=== PATIENT | female | born 1965 | race Caucasian/White ===

== ENCOUNTER 2023-02-17 07:27 | Outpatient (OUT) | payer BC, SELFPAY ==
--- NOTE | 2023-02-17 07:30 | MM_ITS ---
Patient: LATHA DUMONT Exam Date: 02/17/2023 : 1965 Gender:F Ordering : DR Rodriguez Plata . Admission #: [id number] Family : Order #: [id number] CLICK HERE TO VIEW EXAM RADIOLOGY REPORT PROCEDURE: MM TOMOSYNTHESIS SCREENING BI COMPARISON: MG MAMM SCREEN JODIE W CAD, 09/25/2016. INDICATIONS: Screening Calculator Name NCI Breast Cancer Risk Assessment Tool 5 Year Breast Cancer Risk 1.70% Lifetime Breast Cancer Risk 10.20% Personal Breast Cancer No Personal Ovarian Cancer No Treatments None Family Cancers Brother with kidney cancer at age 49. LOCATION: [facility] BREAST COMPOSITION: Heterogeneously dense,which may obscure small masses. FINDINGS: DIAGNOSTIC CATEGORY 1--NEGATIVE. NO CHANGE FROM COMPARISON ASSESSMENT. Scattered benign-appearing calcifications are present. Scattered benign-appearing lymph nodes are present. RIGHT BREAST: No significant suspicious finding. LEFT BREAST: No significant suspicious finding. RECOMMENDATIONS: ROUTINE MAMMOGRAM AND CLINICAL EVALUATION IN 12 MONTHS. PLEASE NOTE: A NORMAL MAMMOGRAM DOES NOT EXCLUDE THE POSSIBILITY OF BREAST CANCER. A CLINICALLY SUSPICIOUS PALPABLE LUMP SHOULD BE BIOPSIED. Dictated by: Yoseph Warren MD on 02/17/2023 at 13:14 Approved by: Yoseph Warren MD on 02/17/2023 at 13:46
== END 2023-02-17 07:28 | disposition home or self-care (01) ==
LOC: MAMMO 07:27
PROVIDERS: PCP Family Medicine; Visit Provider Family Medicine
DX: Z12.31 Encounter for screening mammogram for malignant neoplasm of breast (principal); Z80.51 Family history of malignant neoplasm of kidney
CPT/HCPCS: 77063; 77067

== ENCOUNTER 2024-01-17 11:32 | Outpatient (OUT) | payer BC, SELFPAY ==
--- NOTE | 2024-01-17 11:40 | XR_ITS ---
The [address] [address] Patient Name: LATHA DUMONT MRN: [id number] date: 1965 Sex: F Assigned Patient Location: [facility] Current Patient Location: RAD Accession/Order Number: [id number] Exam Date: 01/17/2024 12:00 Report Date: 01/18/2024 08:49 At the request of: KAVITA JAMES Procedure: XR ribs RT 2V PROCEDURE: XR ribs RT 2V DATE: 01/17/2024 11:00 AM CDT COMPARISONS: Chest x-ray done the same day. CLINICAL INDICATION: 58 years Female Shoulder Impingement FINDINGS: The cardiomediastinal silhouette and pulmonary vasculature are within normal limits. There are some circumscribed nodular densities of the right lung. There is an 11 mm nodule of the right upper lung. It's quite dense for size. It may represent a granuloma.. There is a 7 mm nodular density of the right lower lung field which may be a sclerotic focus of the anterior right fifth rib. Alternatively, it could represent a granuloma. There is no evidence of pleural effusion or pneumothorax. No evidence of rib fractures or other acute rib abnormalities. XR/XR ribs RT 2V IMPRESSION: 1. 11 mm nodule of the right upper lung field is not seen on the CT of the chest from 07/01/2019. It may represent a granuloma. Because it is a new finding since 2019 and raises some suspicion. Follow-up CT of the chest recommended. This CT can be done without contrast enhancement. 2. There appears to be a sclerotic focus of the anterior right fifth rib likely of no clinical significance Electronically authenticated by: JEFF MUNROE Date: 01/18/2024 08:49
--- NOTE | 2024-01-17 11:40 | XR_ITS ---
The [address] [address] Patient Name: LATHA DUMONT MRN: [id number] date: 1965 Sex: F Assigned Patient Location: [facility] Current Patient Location: [facility] Accession/Order Number: [id number] Exam Date: 01/17/2024 12:00 Report Date: 01/18/2024 08:49 At the request of: KAVITA JAMES Procedure: XR shoulder RT min 2V PROCEDURE: XR shoulder RT min 2V DATE: 01/17/2024 11:00 AM CDT COMPARISONS: None CLINICAL INDICATION: Shoulder Impingement FINDINGS: There is no evidence of fractures or other osseous abnormalities. XR/XR shoulder RT min 2V IMPRESSION: Right shoulder radiographs show no evidence of abnormalities. Electronically authenticated by: JEFF MUNROE Date: 01/18/2024 08:49
--- NOTE | 2024-01-17 12:14 | XR_ITS ---
The [address] [address] Patient Name: LATHA DUMONT MRN: [id number] date: 1965 Sex: F Assigned Patient Location: [facility] Current Patient Location: Accession/Order Number: [id number] Exam Date: 01/17/2024 12:00 Report Date: 01/18/2024 08:39 At the request of: KAVITA JAMES Procedure: XR chest 2V PROCEDURE: XR chest 2V DATE: 01/17/2024 11:00 AM CDT COMPARISONS: CT chest 07/01/2019 CLINICAL INDICATION: 58 years Female Shoulder Impingement FINDINGS: The cardiomediastinal silhouette and pulmonary vasculature are within normal limits. The lungs are clear. There is no evidence of pleural effusion or pneumothorax. XR/XR chest 2V IMPRESSION: Chest radiograph is within normal limits. Electronically authenticated by: JEFF MUNROE Date: 01/18/2024 08:39
== END 2024-01-17 11:33 | disposition home or self-care (01) ==
LOC: RAD 11:33
PROVIDERS: PCP Family Medicine; Visit Provider Family Medicine
DX: R07.9 Chest pain, unspecified (principal); M25.511 Pain in right shoulder; R07.81 Pleurodynia; M75.41 Impingement syndrome of right shoulder
CPT/HCPCS: 71046; 71100; 73030

== ENCOUNTER 2024-01-25 07:44 | Outpatient (OUT) | payer BC, SELFPAY ==
--- OUTSIDE RECORDS SUMMARY | 2024-01-25 07:47 | XMS_ITS | CCD ---
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 Name Role Phone Nill, Josh R Unavailable Unavailable Nill, Josh R Unavailable Unavailable Nill, Josh R Unavailable Unavailable MORLEYSTACIE~[phone] UNKNOWN Unavailable Unavailable Nill, Josh R Unavailable Unavailable Nill, Josh R Unavailable Unavailable Nill, Josh R Unavailable Unavailable MORLEYSTACIE~[phone] UNKNOWN Unavailable Unavailable Nill, Josh R Unavailable Unavailable Nill, Josh R Unavailable Unavailable Nill, Josh R Unavailable Unavailable MORLEY, STACIE~[phone] UNKNOWN Unavailable Unavailable APARNA MALDONADO Admitting Unavailable APARNA MALDONADO Attending Unavailable JACOB, DR WALLS Primary Care Unavailable DIGNA, DR ASTRID Quesada Consulting Unavailable APARNA MALDONADO Consulting Unavailable JACOB, DR WALLS Primary Care Unavailable ABRAHAN LLAMAS Admitting Unavailable ABRAHAN LLAMAS Attending Unavailable CASSANDRA SINGH Consulting Unavailable DEVIN BOWMAN Consulting Unavailable APARNA MALDONADO Admitting Unavailable APARNA MALDONADO Attending Unavailable JACOB, DR WALLS Primary Care Unavailable DANICA, DR BRAEDEN Canela Consulting Unavailable APARNA MALDONADO Consulting Unavailable APARNA MALDONADO Admitting Unavailable APARNA MALDONADO Attending Unavailable JACOB, DR WALLS Primary Care Unavailable DANICA, DR BRAEDEN Canela Consulting Unavailable APARNA MALDONADO Consulting Unavailable APARNA MALDONADO Admitting Unavailable APARNA MALDONADO Attending Unavailable DR KAVITA JAMES Primary Care Unavailable DANICA, DR BRAEDEN Canela Consulting Unavailable APARNA MALDONADO Consulting Unavailable Allergies Allergy Classification Reported Allergen(s) Allergy Type Date of Onset Reaction(s) Facility (1 source) Hmg-Coa Reductase Inhibitors (Statins); Translations: [statins] Propensity to adverse reactions (disorder) [facility] Repository (1 source) rosuvastatin; Translations: [Crestor] Drug Allergy [facility] Repository Problems Problem Classification Problem Date Documented Da te Episodic/Chronic E Codes: Overexertion (1 source) Slipping, tripping and stumbling without falling due to stepping into hole or opening, initial encounter; Translations: [SLIP STUMBL NO FALL STEP HOLE INIT] Onset: 01-12-2022 Episodic Fracture of lower limb (11 sources) Displaced fracture of fifth metatarsal bone, left foot, subsequent encounter for fracture with routine healing; Translations: [Displaced fracture of fifth metatarsal bone, left foot, initial encounter for closed fracture] Onset: 01-12-2022 Episodic Other connective tissue disease (5 sources) Pain in left foot; Translations: [PAIN IN LEFT FOOT] Onset: 01-15-2022 Episodic Other injuries and conditions due to external causes (3 sources) Unspecified injury of left ankle, initial encounter; Translations: [UNSPECIFIED INJURY LT ANKLE INITIAL] Onset: 01-09-2022 Episodic Other non-traumatic joint disorders (4 sources) Pain in left ankle and joints of left foot; Translations: [PAIN IN LEFT ANKLE] Onset: 01-13-2022 Episodic Other nutritional; endocrine; and metabolic disorders (1 source) Morbid (severe) obesity due to excess calories; Translations: [MORBID SEVERE OBES D/T EXCESS HILLARY] Onset: 01-12-2022 Chronic Other nutritional; endocrine; and metabolic disorders (1 source) Body mass index (BMI) 40.0-44.9, adult; Translations: [BODY MASS INDEX BMI 40.0-44.9 ADULT] Onset: 01-12-2022 Chronic Sprains and strains (1 source) Sprain of unspecified ligament of left ankle, initial encounter; Translations: [SPRAIN UNS LIGAMENT LT ANKLE INIT] Onset: 01-12-2022 Episodic Results Test Name Value Interpretation Reference Range Facility XR ANKLE LT MIN 3 Von 2021 XR ANKLE LT MIN 3 V EXAM: XR ANKLE LT MIN 3 V HISTORY: Trauma, status post fall COMPARISON: None. TECHNIQUE: 3 views of the left ankle are performed. FINDINGS: There are tiny amorphous densities adjacent to the distal fibula, suggesting tiny avulsion fragments. There is adjacent soft tissue swelling. The ankle mortise is preserved. On the lateral view, there appears to be a transverse fracture of the proximal fifth metatarsal. There is a plantar calcaneal spur, and an enthesophyte at the insertion of the Achilles tendon. IMPRESSION: Partial visualization of a fracture at the base of the fifth metatarsal. Suspected tiny avulsion fractures from the distal fibula. Lateral soft tissue swelling. Electronically authenticated by: DEVINShawn BOWMAN Date: 2022-01-09 19:36 [facility] Main OR Intraoperative Recor don 2018 Main OR Intraoperative Record IntraOp Document Type FT Summary Primary Physician: Josh LOWRY MD Finalized Date/Time: 05/27/18 14:25:01 Pt. Name: LATHA DUMONT Shawn Pro/Sex: 1965 Female Med Rec #: [id number] Physician: Josh LOWRY MD Financial #: [id number] Pt. Type: A Room/Bed: [facility] Admit/Disch: 05/23/18 05:59:00 - 05/23/18 13:00:00 Institution: Case Times FT Entry 1 Patient Times In Room 05/23/18 07:42:00 Out Room 05/23/18 09:04:00 Procedure Times Start 05/23/18 08:01:00 Stop 05/23/18 09:00:00 Anesthesia Times Start 05/23/18 07:42:00 Stop 05/23/18 09:04:00 Last Modified By: Ciara Vernon CST 05/23/18 09:04:52 General Comments: 05/25/18 Chart opened to review and send charges Roxana Vernon CST Case Attendance FT Entry 1 Entry 2 Entry 3 Case Attendee Harlan COLEMAN, Milly LOWRY MD, Josh Bourne RN, Nikki Patel Role Performed Anesthesiologist Surgeon - Primary Sales Service Coordinator - Primary Wire Coater Time In 05/23/18 07:42:00 05/23/18 07:42:00 05/23/18 07:42:00 Time Out 05/23/18 09:04:00 05/23/18 09:04:00 05/23/18 09:04:00 Procedure CHOLECYSTECTOMY CHOLECYSTECTOMY CHOLECYSTECTOMY LAPAROSCOPIC W/ LAPAROSCOPIC W/ LAPAROSCOPIC W/ CHOLANGI(.) CHOLANGI(.) CHOLANGI(.) Comments Dr. George Supervising Paulette Rutherford- MA3 Last Modified By: Tayla CORRALES, Nikki Bourne RN, Nikki Bourne RN, Nikki Patel 05/23/18 09:04:54 05/23/18 09:04:54 05/23/18 09:04:54 Entry 4 Entry 5 Entry 6 Case Attendee Chase CORRALES, Neelam Mcbride RN, CNOR, VERNON CARRIZALES, Saulo Castillo Role Performed Sales Service Coordinator - Primary Scrub - Other Surgeon - Assist 1 Time In 05/23/18 07:42:00 05/23/18 07:42:00 05/23/18 07:42:00 Time Out 05/23/18 09:04:00 05/23/18 09:04:00 05/23/18 09:04:00 Procedure CHOLECYSTECTOMY CHOLECYSTECTOMY CHOLECYSTECTOMY LAPAROSCOPIC W/ LAPAROSCOPIC W/ LAPAROSCOPIC W/ CHOLANGI(.) CHOLANGI(.) CHOLANGI(.) Comments Last Modified By: Nikki Bourne RN RN, CNOR, Nikki Johnson RN 05/23/18 09:04:54 05/25/18 08:24:44 05/23/18 09:04:54 Entry 7 Case Attendee Megha RADIAL SAW OPERATOR/SA, Sherice Role Performed Scrub - Primary Time In 05/23/18 07:42:00 Time Out 05/23/18 09:04:00 Procedure CHOLECYSTECTOMY LAPAROSCOPIC W/ CHOLANGI(.) Comments Last Modified By: Nikki Bourne RN 05/23/18 09:04:54 Perioperative Protocols FT Pre-Care Text: Implements protective measures prior to operative or invasive procedure, confirms identity before the operative or invasive procedure, verifies operative procedure, surgical site, and laterality Entry 1 Procedure(s) CHOLECYSTECTOMY Patient Identity Birthday, ID Band LAPAROSCOPIC W/ Verified (select at Check, Patient CHOLANGI(.) least 2): Participation Consents / H and P Anesthesia Consent, Operative Site N/A Verified HandP, Surgery/Procedure Marking Verified Consent Surgical Site Yes Laterality Verified n/a Verified Procedure Verified Yes Correct Patient Yes Position Verified Availability Equipment, Medication, Prep Dry Yes Verified (If X-ray Applicable) PreOp Antibiotic Yes Time Out Milly Villaseñor, Given Participants STARLA CARRIZALES, Chase Valdes RN, Tayla Hogan RN, VERNON Cannon MD, Saulo Howell, Megha RADIAL SAW OPERATOR/SA, Sherice Time Out Complete 05/23/18 08:00:00 Outcomes Met? Yes Last Modified By: Nikki Bourne RN 05/23/18 08:00:57 Post-Care Text: The patient is free from signs and symptoms of injury caused by extraneous objects Allergy Information FT Pre-Care Text: Verifies allergies Entry 1 Allergies Reviewed? Yes Allergies Reviewed Self/Patient With Outcomes Met? Yes Last Modified By: Nikki Bourne RN 05/23/18 07:20:27 Post-Care Text: The patient received appropriate medication(s) safely administered during the perioperative period Surgical Procedures FT Entry 1 Procedure Description Procedure CHOLECYSTECTOMY Modifiers . LAPAROSCOPIC W/ CHOLANGIOGRAM Surgeon Description CHOLECYSTECTOMY LAPAROSCOPIC Primary Procedure Yes Primary Surgeon Josh LOWRY MD Start 05/23/18 08:01:00 Stop 05/23/18 09:00:00 Anesthesia Type General Surgical Service General Wound Class 2 - Clean-Contaminated Last Modified By: Nikki Bourne RN 05/23/18 09:05:03 General Case Data FT Pre-Care Text: Classifies surgical wound, implements aseptic technique, initiates traffic control Entry 1 Case Information OR OR 6 FT Case Level Level 3 Wound Class 2 - Clean-Contaminated Specialty General ASA Class 2 Preop Diagnosis CHOLELITHISASIS Postop Same As Preop Yes Postop Diagnosis CHOLELITHISASIS Outcomes Met? Yes Last Modified By: Nikki Bourne RN 05/23/18 07:22:27 Post-Care Text: The patient is free from signs and symptoms of infection Skin Assessment (Pre Procedure) FT Pre-Care Text: Implements protective measures to prevent skin/ tissue injury due to thermal or mechanical sources Evaluates for signs and symptoms of physical injury to skin and tissue Entry 1 Skin Integrity Intact, [place], Warm, and Skin Abnormality No Dry Outcomes Met? Yes Last Modified By: Nikki Bourne RN 05/23/18 07:22:37 Post-Care Text: The patient is free from signs and symptoms of injury caused by extraneous objects Patient Positioning FT Pre-Care Text: Identifies physical alterations that require additional precautions for procedure-specific positioning, verifies presence of prosthetics or corrective devices, positions the patient, evaluates the patient for signs and symptoms of injury as a result of positioning Entry 1 Procedure CHOLECYSTECTOMY Body Position Supine LAPAROSCOPIC W/ CHOLANGI(.) Feet Uncrossed? Yes Left Arm Position Extended on Padded Arm Board Right Arm Position Extended on Padded Arm Left Leg Position Extended Board Right Leg Position Extended Positioning Device Safety Strap, Pillow Large Under Knees, Foot board Press Points Checked Yes By Milly Villaseñor Ginty RN, Chase Cannon RN, Reed Hogan RN, Anna SPARKS Outcomes Met? Yes Last Modified By: Tayla CORRALES, Nikki Patel 05/23/18 07:24:14 Post-Care Text: The patient is free from signs and symptoms of injury related to positioning Patient Care Devices FT Pre-Care Text: Implements protective measures to prevent skin/ tissue injury due to thermal or mechanical sources Entry 1 Entry 2 Entry 3 Equipment Type CAUTERY UNIT[F] ENDOFLOW IRRIGATION INSUFLATORS[F] SYSTEM[F] Equipment Number boom Equipment Setting Outcomes Met? Yes Yes Yes Last Modified By: Tayla RN, Nikki Bourne RN, Nikki Bourne RN, Nikki Patel 05/27/18 14:24:40 05/23/18 07:25:30 05/27/18 14:24:40 Entry 4 Entry 5 Entry 6 Equipment Type INSUFLOW HEATER UNIT[F] MISTRAL FORCED AIR MONITOR CHARGE SURGERY WARMING SYSTEM UNIT[F] [F] Equipment Number M4 Equipment Setting Outcomes Met? Yes Yes Yes Last Modified By: Tayla RN, Nikki Bourne RN, Nikki Bourne RN, Nikki Patel 05/27/18 14:24:40 05/27/18 14:24:40 05/27/18 14:24:40 Entry 7 Entry 8 Entry 9 Equipment Type OLYMPUS SMOKE VENA FLOW UNIT[F] VIDEO SYSTEM[F] EVACUATOR[F] Equipment Number Equipment Setting Outcomes Met? Yes Yes Yes Last Modified By: Tayla RN, Nikki Bourne RN, Nikki Bourne RN, Nikki Patel 05/27/18 14:24:40 05/27/18 14:24:40 05/27/18 14:24:40 Post-Care Text: The patient is free from signs and symptoms of injury caused by extraneous objects Transport To OR FT Pre-Care Text: Transports according to individual needs. Evaluates for signs and symptoms of skin and tissue injury as a result of transfer or transport Entry 1 Via Cart By Chase CORRALES, Neelam Coleman Safety Precautions Side Rails Up Outcomes Met? Yes Last Modified By: Nikki Bourne RN 05/23/18 07:25:38 Post-Care Text: The patient is free from signs and symptoms of injury related to transfer/transport Cautery FT Pre-Care Text: Implements protective measures to prevent injury due to electrical sources, and evaluates for signs and symptoms of electrical injury Entry 1 ESU Identification ESU Type CAUTERY UNIT[F] Equipment Number boom ESU Settings Cut 0 Coag 20 ESU Grounding Pad Site Right Thigh Hair Removal Pad No Site Pre Pad Site Clear and Intact Post Pad Site Clear and Intact Condition Condition Outcomes Met? Yes Last Modified By: Nikki Bourne RN 05/23/18 07:27:19 Post-Care Text: The patient if free from signs and symptoms of electrical injury Counts Verification FT Pre-Care Text: Performs required counts Entry 1 Entry 2 Procedure(s) CHOLECYSTECTOMY CHOLECYSTECTOMY LAPAROSCOPIC W/ LAPAROSCOPIC W/ CHOLANGI(.) CHOLANGI(.) Type Initial Final Items Sponges, Sharps Sponges, Sharps Status Correct Correct Time By Nikki Bourne RN, Farris RN, Karen M, Sharp RADIAL SAW OPERATOR/SA, Sherice Sharp RADIAL SAW OPERATOR/SA, Sherice Outcomes Met? Yes Yes Last Modified By: Nikki Bourne RN, RN, Amber L 05/23/18 07:53:13 05/23/18 08:52:17 Post-Care Text: The patient is free from signs and symptoms of injury caused by extraneous objects Skin Prep FT Pre-Care Text: Performs skin preparations Entry 1 Procedure CHOLECYSTECTOMY Prep Area abdomen LAPAROSCOPIC W/ CHOLANGI(.) Prep Agents Betadine Scrub and Solution Hair Removal Methods Not Indicated By Neelam Stone RN Outcomes Met? Yes Last Modified By: Nikki Bourne RN 05/23/18 07:27:35 Post-Care Text: The patient is free from signs and symptoms of infection Departure From OR FT Pre-Care Text: Transports according to individual needs. Evaluates for signs and symptoms of skin and tissue injury as a result of transfer or transport. Entry 1 Via Cart Safety Precautions Side Rails Up PostOp Destination PACU Transported By Neelam Stone RN Patient Status Stable Skin. Condition Warm, Dry Airway Maintenance Oxygen in Use? Yes Airway Device Simple Mask Flow Rate 8 L Outcomes Met? Yes Last Modified By: Nikki Bourne RN 05/23/18 07:29:05 Post-Care Text: The patient is free from signs and symptoms of injury related to transfer/transport General Comments: HANDOFF COMMUNICATION GIVEN TO WINDOW CLEANERRN. 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 Yes Last Modified By: Nikki Bourne RN 05/23/18 07:29:57 Post-Care Text: The patient is free from signs and symptoms of infection Medication Administration FT Pre-Care Text: Verifies allergies, administers prescribed medications and solutions, administers prescribed antibiotic therapy and immunizing agents as ordered, evaluates response to medications Administers prescribed medications and solutions Entry 1 Expiration Date Yes Outcomes Met? Yes Verified Last Modified By: Nikki Bourne RN 05/23/18 07:30:04 Post-Care Text: The patient received appropriate medication(s) safely administered during the perioperative period For [place] please see scanned medication reconcilliation form for medications used at the field during the procedure. Drains/Tubes FT Pre-Care Text: Administers care to invasive device sites Entry 1 Device Type TUBE NASOGASTIC SUMP Quantity 1 18FR [[id number]][F] Inserted By Milly Villaseñor at End of Case? Yes Outcomes Met? Yes Last Modified By: Nikki Bourne RN 05/23/18 07:56:15 Post-Care Text: The patient is free from signs and symptoms of infection Cultures and Specimens FT Pre-Care Text: Manages specimen handling and disposition Manages culture specimen collection Entry 1 Cultures Ordered No Specimens Ordered Yes Specimen Disposition Designated OR Area Frozen Section Times Outcomes Met? Yes Last Modified By: Nikki Bourne RN 05/23/18 07:30:21 Post-Care Text: The patient is free from signs and symptoms of injury caused by extraneous objects The patient is free from signs and symptoms of infection General Comments: Specimen- Gallbladder Temperature Control Entry 1 Temperature Control BLANKET MISTRAL AIR Quantity 1 Aid TORSO [[id number]][F] Fluid/[place] Unit Mistral warming system Setting 43C/High Body Site Upper anterior torso Last Modified By: Nikki Bourne RN 05/23/18 07:30:53 Case Comments Finalized By: Nikki Bourne RN Document Signatures Signed By: Nikki Bourne RN 05/23/18 09:05 [place] CORRALES, GLENROYORDevin 05/25/18 08:24 Saulo GALANCiara 05/25/18 13:09 Tayla CORRALES, Nikki Patel 05/27/18 14:25 [facility] Coding Summary.on 05-26-2018 Coding Summary. CODING DATE: 019 FINAL [facility] STATUS: Home (Routine DC) PAYOR: Jaquan APC DESCRIPTION 5361 Level 1 Laparoscopy and Related Services ADMIT DX: REASON FOR VISIT DX: K80.10 Calculus of gallbladder with chronic cholecystitis without obstruction FINAL DX: PRINCIPAL: K80.10 Calculus of gallbladder with chronic cholecystitis without obstruction SECONDARY: Z87.891 Personal history of nicotine dependence PYMT PROC APC STAT DESCRIPTION DOCTOR NAME DATE 53750 5361 J1 Laparoscopy, surgical; Josh LOWRY MD 05/23/2018 cholecystectomy 68625 Anesthesia for Ariel Panda DO, 05/23/2018 intraperitoneal procedures in upper abdomen including laparoscopy; not otherwise specified NOTE: The code number assigned matches the documented diagnosis and / or procedure in the patient's chart. However, the narrative phrase printed from the coding software may appear abbreviated, or result in slightly different terminology. Revised Coded By: Lydia Jaime Revised Date Saved: 05/26/2018 02:49 pm [facility] Inpatient Patient Summaryon 05-23-2018 [facility] Name: LATHA DUMONT PHYSICIANS Admitting Physician: Josh LOWRY MD Physician: Josh LOWRY MD PCP: Discharge Diagnosis: Cholelithiasis with chronic cholecystitis Comment: PATIENT EDUCATION INFORMATIONInstructions:Medica tion Leaflets:Follow up:With: Address: When: Josh LOWRY [address] [place] [address] Business (1) Within 7 to 10 days MEDICATION LISTComment: [facility] Main OR PACU I Recordon 04-25 Main OR PACU I Record PACU Phase I Document Type FT Summary Primary Physician: Josh LOWRY MD Finalized Date/Time: 05/23/18 10:23:41 Pt. Name: LATHA DUMONT Shawn Pro/Sex: 1965 Female Med Rec #: [id number] Physician: Josh LOWRY MD Financial #: [id number] Pt. Type: A Room/Bed: Admit/Disch: 05/23/18 05:59:02 - Institution: Case Times PACU I FT Pre-Care Text: Identifies barriers to communication and implements measures to provide psychological support Develops individualized plan of care, and ensures continuity of care Maintains patient's dignity and privacy, and maintains patient confidentiality Identifies and reports philosophical, cultural, and spiritual beliefs and values Identifies individual values and wishes concerning care Implements aseptic technique, and administers prescribed antibiotic therapy and immunizing agents as ordered Evaluates postoperative tissue perfusion Implements thermoregulation measures, and monitors body temperature Evaluates postoperative respiratory status Evaluates postoperative cardiac status Evaluates postoperative neurological status Assesses pain control, collaborated in initiating patient-controlled analgesia and implements alternative methods of pain control Verifies allergies, administers prescribed medications and solutions, evaluates response to medications Entry 1 In PACU I 05/23/18 09:06:00 Discharge from PACU 05/23/18 09:59:00 I Outcomes Met? Yes Last Modified By: Dimple Durbin RN 05/23/18 10:23:29 Post-Care Text: The patient demonstrates knowledge of the expected response to the operative or invasive procedure The patient's care is consistent with the individualized perioperative plan of care The patient's right to privacy is maintained The patient's value system, lifestyle, ethnicity, and culture are considered, respected, and incorporated into the perioperative plan of care The patient participates in decisions affecting his or her perioperative plan of care The patient is free from signs and symptoms of infection The patient has wound/tissue perfusion consistent with or improved from baseline levels established preoperatively The patient is at or returning to normothermia at the conclusion of the immediate postoperative period The patient's respiratory function is consistent with or improved from baseline levels established preoperatively The patient's cardiovascular status is consistent with or improved from baseline levels established preoperatively The patient's cardiovascular status is consistent with or improved from baseline levels established preoperatively The patient demonstrates and/or reports adequate pain control throughout the perioperative period The patient received appropriate medication(s), safely administered during the perioperative period Acuity Level PACU I FT Entry 1 Start Time 05/23/18 09:06:00 Stop Time 05/23/18 09:59:00 Acuity Level Acuity Level I Last Modified By: Dimple Durbin RN 05/23/18 10:23:40 Finalized By: Dimple Durbin RN Document Signatures Signed By: Dimple Durbin RN 05/23/18 10:23 Normal [facility] Main OR PACU II Recordon Main OR PACU II Record PACU Phase II Document Type FT Summary Primary Physician: Josh LOWRY MD Finalized Date/Time: 05/23/18 13:08:23 Pt. Name: LATHA DUMONT Shawn Roberts/Sex: 1965 Female Med Rec #: [id number] Physician: Josh LOWRY MD Financial #: [id number] Pt. Type: A Room/Bed: [facility] Admit/Disch: 05/23/18 05:59:02 - Institution: Case Times PACU II FT Pre-Care Text: Identifies barriers to communication and implements measures to provide psychological support and determines knowledge level Develops individualized plan of care, and ensures continuity of care Maintains patient's dignity and privacy, and maintains patient confidentiality Identifies and reports philosophical, cultural, and spiritual beliefs and values Identifies individual values and wishes concerning care administers prescribed antibiotic therapy and immunizing agents as ordered, Evaluates postoperative tissue perfusion Implements thermoregulation measures, and monitors body temperature Evaluates postoperative respiratory status Evaluates postoperative cardiac status Evaluates postoperative neurological status Assesses pain control, collaborated in initiating patient-controlled analgesia and implements alternative methods of pain control Verifies allergies, administers prescribed medications and solutions, evaluates response to medications Entry 1 In PACU II 05/23/18 10:00:00 Discharge from PACU 05/23/18 13:00:00 II Outcomes Met? Yes Last Modified By: Claritza Patricia RN 05/23/18 13:08:20 Post-Care Text: The patient demonstrates knowledge of the expected response to the operative or invasive procedure The patient's care is consistent with the individualized perioperative plan of care The patient's right to privacy is maintained The patient's value system, lifestyle, ethnicity, and culture are considered, respected, and incorporated into the perioperative plan of care The patient participates in decisions affecting his or her perioperative plan of care. The patient is free from signs and symptoms of infection The patient has wound/tissue perfusion consistent with or improved from baseline levels established preoperatively The patient is at or returning to normothermia at the conclusion of the immediate postoperative period The patient's respiratory function is consistent with or improved from baseline levels established preoperatively The patient's cardiovascular status is consistent with or improved from baseline levels established preoperatively The patient's neurological status is consistent with or improved from baseline levels established preoperatively The patient demonstrates and/or reports adequate pain control throughout the perioperative period The patient received appropriate medication(s), safely administered during the perioperative period Finalized By: Claritza Patricia RN Document Signatures Signed By: Claritza Patricia RN 05/23/18 13:08 Normal [facility] Main OR Preoperative Recordo n 05-23-2018 Main OR Preoperative Record PreOp Document Type FT Summary Primary Physician: Josh LOWRY MD Finalized Date/Time: 05/23/18 07:59:12 Pt. Name: LATHA DUMONT/Sex: 1965 Female Med Rec #: [id number] Physician: Josh LOWRY MD Financial #: [id number] Pt. Type: A Room/Bed: [place] [address] Admit/Disch: 05/23/18 05:59:02 - Institution: Case Times PreOp FT Pre-Care Text: Verifies consent for planned procedure, identifies individual values and wishes concerning care, includes family members in perioperative teaching Entry 1 Patient Times. In Pre Surgery 05/23/18 06:05:00 Out Pre Surgery 05/23/18 07:40:00 Outcomes Met? Yes Last Modified By: Nikki Bourne RN 05/23/18 07:59:09 Post-Care Text: The patient participates in decisions affecting his or her perioperative plan of care Finalized By: Nikki Bourne RN Document Signatures Signed By: Nikki Bourne RN 05/23/18 07:59 Normal [facility] Operative Reporton 8 Operative Report Date of Surgery: 05/23/2018SURGEON: Josh Lowry M.D.SENIOR OPERATOR: Saulo Cottrell M.D., FACSPREOPERATIVE DIAGNOSIS: Symptomatic cholelithiasisPOSTOPERATIVE DIAGNOSIS: Symptomatic cholelithiasis with chroniccholecystitisOPERATION: Laparoscopic cholecystectomyANESTHESIA: General endotrachealESTIMATED BLOOD LOSS: Less than 15 mLINDICATIONS AND CONSENT: The patient is a 52 year old female with a longhistory of intermittent biliary colic which has worsened over the lastmonth. Workup revealed numerous gallstones both on computerized tomographyand ultrasound with a normal size common duct. She had essentially normalliver function tests. Indications, risks, benefits, alternatives ofproceeding with laparoscopic cholecystectomy were explained extensively tothe patient including risk of bleeding, infection, scarring, pain, bileduct injury, need for intraoperative cholangiogram, postoperativeendoscopic retrograde cholangiopancreatography, open procedure, blood clot,pulmonary embolus, heart attack, anesthetic complications or need forfurther surgery. All of her questions were answered. Informed consent wasobtained.PROCEDURE: The patient brought to the Operating Room and placed in thesupine position. General anesthesia was induced. She was prepped and drapedin usual sterile fashion. A supraumbilical incision was made with a scalpelblade and carried down through the subcutaneous tissue using bluntdissection. The fascia was grasped and incised. Two 0 Vicryl stay sutureswere placed in either side of the midline fascia. The Antonia trocar wasthen inserted and secured using the stay sutures. The abdomen was theninsufflated with carbon dioxide to a pressure of 15 mm Hg. The scope wasthen inserted and the abdomen was visualized. Three 5 mm ports were thenplaced, one in the subxiphoid area, two in the right subcostal area allunder direct visualization. The patient was placed in reverse Trendelenburgposition with the right side up. Gallbladder was noted to be markedlydistended but not acutely inflamed but more chronically inflamed filledwith numerous stones. It was grasped at the fundus and retracted cephaladon the patient's right. The infundibulum had several omental adhesionswhich were taken down using sharp and blunt dissection. The infundibulumwas then grasped and retracted laterally and inferiorly. There was a largestone within the infundibulum. The cystic duct was carefully dissectedfree from surrounding structures. The whole infundibulum was mobilized offof the liver. The cystic artery was identified as well. Both the arteryand duct were noted to be of normal caliber. All structures of Calot'striangle were identified. The cystic duct was then clipped with dkoFlk-m-zez clips proximally towards the common duct and one distally towardsthe gallbladder and then divided. The artery was divided in an identicalfashion. There was also noted to be some posterior branches which werecontrolled with regular clips. The gallbladder was then taken down from theliver bed using electrocautery. There was noted to be chronic inflammatorychanges within the liver bed. A small several mm opening was made in thegallbladder and the posterior wall with minimal spillage of bile and nostones. Once the gallbladder was completely removed it was brought out inan EndoCatch bag through the umbilical port site and the upper abdomen wasthen copiously irrigated with Saline until clear. The liver bed wasinspected and noted to be hemostatic with no evidence of bile leak. Jackson sites were examined upon withdrawal of the ports. There was noted joselo good hemostasis. The umbilical port site fascia was closed with 0 Ulysaloxsejj-yf-osxqe suture. All port sites were infiltrated with 0.5% Marcaine.The skin was then closed with interrupted 4-0 subcuticular Monocryl suturesand skin glue. Sterile pressure dressing was applied to the umbilicalincision. The patient tolerated the procedure well, was extubated and sentto Recovery Room in good condition.Josh Lowry M.D.lkrDictated: 05/23/2018 #[id number]: 05/23/2018 #[id number]: Kezia Hurt M.D. [facility] Comment on above: Result Comment: Elec tronically Signed By: Josh LOWRY MD\Date and Time Signed: 05/23/18 13:55 EST Patient Education - Texton 1 Patient Education - Text [facility] Coding Summary.on 05-19-2018 Coding Summary. CODING DATE: 018 FINAL [facility] STATUS: Home (Routine DC) PAYOR: [place] ADMIT DX: REASON FOR VISIT DX: Z01.818 Encounter for other preprocedural examination FINAL DX: PRINCIPAL: Z01.818 Encounter for other preprocedural examination SECONDARY: PROCEDURES DOCTOR NAME DATE NOTE: The code number assigned matches the documented diagnosis and / or procedure in the patient's chart. However, the narrative phrase printed from the coding software may appear abbreviated, or result in slightly different terminology. Coded By: Patti Rebollar CphT Date Saved: 05/19/2018 07:51 am Normal [facility] BUNon 05-18-2018 Urea nitrogen mass conc 12 mg/dL Normal 5-21 [facility] Comment on above: Performed By: #### 2 567841, 8889615, 3342936, 0133743, 7179804, 88500228, 8913827 ####[facility] [address] [place] [address] CBC w/Indiceson 05-18-2018 Erythrocyte distribution width Auto Ratio (RBC) 13.4 % Normal 10.9-14.2 [facility] Comment on above: Performed By: #### 2 674114, 3389022, 8048880, 0875458, 8753053, 46447710, 9507896 ####[facility] [address] [place] [address] Hematocrit Auto Volume Fraction (Bld) 41.7 % Normal 34.0-46.0 [facility] Comment on above: Performed By: #### 2 127069, 6963803, 6265089, 5846706, 6440878, 62888508, 6374354 ####[facility] [address] [place] [address] Hemoglobin mass conc (Bld) 13.7 g/dL Normal 12.0-16.0 [facility] Comment on above: Performed By: #### 2 925374, 9163454, 8709403, 0940054, 9995900, 35840060, 4823504 ####[facility] [address] [place] [address] MCH Auto Entitic mass (RBC) 28.3 pg Normal 27.0-34.0 [facility] Comment on above: Performed By: #### 2 135032, 7471866, 3632865, 8600018, 1803129, 20305596, 1301967 ####[facility] [address] [place] [id number] MCHC Auto mass conc (RBC) 32.9 g/dL Normal 31.4-39.3 [facility] Comment on above: Performed By: #### 2 217191, 3025879, 3519695, 8904764, 6164417, 76180007, 6573363 ####[place] [address] [place] [id number] MCV Auto Entitic volume (RBC) 86.0 fL Normal 80.0-100.0 [facility] Comment on above: Performed By: #### 2 912064, 8627936, 0159389, 7644766, 5814591, 20488858, 0579140 ####[place] [address] Platelet mean volume Auto Entitic volume (Bld) 8.2 fL Normal 6.4-10.8 [facility] Comment on above: Performed By: #### 2 355227, 5819667, 9263961, 4998834, 9656535, 19657208, 4258735 ####[place] [address] Platelets Auto #/vol (Bld) 304.0 E9/L Normal 150.0-500.0 [facility] Comment on above: Performed By: #### 2 773895, 6431924, 2775861, 3343166, 9882798, 45311660, 8182366 ####[place] 68[address] RBC Auto #/vol (Bld) 4.8 E12/L Normal 4.3-5.9 [facility] Comment on above: Performed By: #### 2 094625, 8261093, 6608428, 8467981, 1033671, 40349557, 1296324 ####[address] [address] WBC corrected for nucl RBC Auto #/vol (Bld) 5.4 E9/L Normal 4.0-11.0 [facility] Comment on above: Performed By: #### 2 095966, 7215023, 9644686, 7205923, 7469121, 02270905, 4536610 ####[facility] [address] [place] [address] Creatinineon 05-18-2018 Creatinine mass conc 0.6 mg/dL Normal 0.5-1.3 [facility] Comment on above: Performed By: #### 2 824346, 9660587, 5948316, 6937479, 7075140, 53309246, 9081758 ####[facility] [address] [place] [address] Glucoseon 05-18-2018 Glucose mass conc 91 mg/dL Normal 55-199 [facility] Comment on above: Performed By: #### 2 499751, 0936404, 8638976, 9038492, 1851491, 32062532, 2823262 ####[facility] [address] [place] [address] Hep Func Panelon 05-18-2018 Bilirubin.indirec t [Mass or Moles/volume] in Serum or Plasma UTC Abnormal 0.1-0.9 [facility] Comment on above: Order Comment: if no t already done. Result Comment: Resu lt verified by Discern Rule. Performed result UTC (Unable to Calculate) was sent as an Alpha code due the inability to calculate a valid numeric value. Performed By: #### 2 459022, 4096760, 3219539, 5483613, 1612251, 92765220, 3476247 ####[facility] [address] [place] [address] Albumin mass conc 1.3 g/dL Normal 1.1-2.2 [facility] Comment on above: Order Comment: if no t already done. Performed By: #### 2 677306, 2160458, 1788352, 0895925, 5657746, 97898675, 5680951 ####[facility] [address] [place] [address] Albumin mass conc 3.9 g/dL Normal 3.3-5.0 [facility] Comment on above: Order Comment: if no t already done. Performed By: #### 2 990636, 1765374, 9442236, 9054228, 1500444, 36797443, 5200662 ####[facility] [address] [place] [address] ALP enzyme act/vol 81 Int._Unit/L Normal 21-98 [facility] Comment on above: Order Comment: if no t already done. Performed By: #### 2 026908, 3967436, 4237628, 3373748, 2406990, 20582167, 9665989 ####[facility] [address] [place] [address] ALT No additional P-5'-P enzyme act/vol 47 Int._Unit/L High 6-46 [facility] Comment on above: Order Comment: if no t already done. Performed By: #### 2 891976, 4183964, 6311488, 4409319, 8864626, 15391425, 5169213 ####[facility] [address] [place] [address] AST enzyme act/vol 33 Int._Unit/L Normal 5-43 [facility] Comment on above: Order Comment: if no t already done. Performed By: #### 2 669656, 9260073, 2940898, 1858126, 9374360, 57855557, 5877100 ####[facility] [address] [place] [address] Bilirubin mass conc 0.5 mg/dL Normal 0.0-1.1 [facility] Comment on above: Order Comment: if no t already done. Performed By: #### 2 670939, 6863532, 4051695, 7244810, 0416743, 14539898, 9020323 ####[facility] [address] [place] [address] Bilirubin.direct mass conc mg/dL Normal 0.1-0.4 [facility] Comment on above: Order Comment: if no t already done. Performed By: #### 2 933153, 9827898, 1648891, 7124256, 1698150, 89568875, 4490643 ####[facility] [address] [place] [address] Globulin Calculated mass conc (S) 3.0 g/dL Normal 1.4-4.0 [facility] Comment on above: Order Comment: if no t already done. Performed By: #### 2 762454, 4605037, 9520498, 0273506, 1266210, 28269142, 1477260 ####[facility] [address] [place] [address] Protein mass conc 6.9 g/dL Normal 6.0-7.8 [facility] Comment on above: Order Comment: if no t already done. Performed By: #### 2 121920, 4665302, 8193453, 8386218, 6990273, 34977998, 1534887 ####[facility] [address] [place] [address] Lyteson 05-18-2018 Anion gap 3 molar conc 11 mmol/L Normal 6-16 [facility] Comment on above: Performed By: #### 2 736641, 1226354, 9757377, 8727026, 3545307, 02266106, 9166084 ####[facility] [address] [place] [address] Chloride molar conc 105 mmol/L Normal 101-111 [facility] Comment on above: Performed By: #### 2 927130, 8350127, 4606212, 4496915, 6402772, 78225253, 7448664 ####[facility] [address] [place] [address] CO2 molar conc 23 mmol/L Normal 21-31 [facility] Comment on above: Performed By: #### 2 041147, 1445662, 6274032, 6155309, 3843812, 32015489, 2125005 ####[facility] [address] [place] [address] Potassium molar conc 3.8 mmol/L Normal 3.5-5.3 [facility] Comment on above: Performed By: #### 2 846786, 6633093, 2221689, 7243972, 5043027, 51168076, 5108294 ####[facility] [address] [place] [address] Sodium molar conc 135 mmol/L Normal 135-145 [facility] Comment on above: Performed By: #### 2 874062, 5395306, 1881435, 2764337, 9583726, 80768462, 6339700 ####[facility] [address] [place] [address] eGFRon 05-18-2018 GFR/1.73 sq M predicted among blacks MDRD vol rate/area (S/P/Bld) mL/min/{1.73_m2} Normal >=59 [facility] Comment on above: Order Comment: Order added by Discern Expert. Result Comment: eGFR is race adjusted. AA=. Performed By: #### 2 396669, 5703453, 2239403, 3071159, 9514994, 99111379, 9355063 ####[facility] [address] [place] [address] GFR/1.73 sq M predicted among non-blacks MDRD vol rate/area (S/P/Bld) mL/min/{1.73_m2} Normal >=59 [facility] Comment on above: Order Comment: Order added by Discern Expert. Result Comment: Measurement Analyst jany kidney disease could be indicated at eGFR's of less than 60 mL/min/1.73m2. Kidney failure is indicated at less than 15 mL/min/1.73m2. Performed By: #### 2 318265, 7553762, 1476594, 6818906, 6380802, 14255009, 4748448 ####[facility] [address] [place] [address] Coding Summary.on 05-16-2018 Coding Summary. CODING DATE: 018 FINAL [facility] STATUS: Home (Routine DC) PAYOR: Jaquan APC DESCRIPTION 5522 Level 2 Imaging without Contrast ADMIT DX: REASON FOR VISIT DX: K80.20 Calculus of gallbladder without cholecystitis without obstruction FINAL DX: PRINCIPAL: K80.20 Calculus of gallbladder without cholecystitis without obstruction SECONDARY: R10.11 Right upper quadrant pain PYMT PROC APC STAT DESCRIPTION DOCTOR NAME DATE NOTE: The code number assigned matches the documented diagnosis and / or procedure in the patient's chart. However, the narrative phrase printed from the coding software may appear abbreviated, or result in slightly different terminology. Coded By: Patti Rebollar CphT Date Saved: 05/16/2018 11:29 am [facility] US Abdomen, Limitedon 2017 US Abdomen, Limited Exam Date/Time:05/13/2018 09:49 ESTReason for Exam:Calculus of gallbladder without cholecystitis without obstructionReportIMPRESSION: MULTIPLE GALLSTONES. NO SECONDARY SIGNS OF ACUTE GALLBLADDER DISEASE.EXAM: Limited abdominal ultrasoundINDICATION:Right upper quadrant pain Calculus of gallbladder without cholecystitiswithout obstruction TECHNIQUE: Patricia-scale evaluation of the right upper quadrant was performed.COMPARISON: None available.FINDINGS: Liver: Hepatic echogenicity is within normal limits without intrahepatic biliarydilatation. There are no focal hepatic lesions..Gallbladder: Multiple echogenic foci in the gallbladder that move and shadowconsistent with gallstones. Gallbladder wall not thickened. The common duct measures up to 5 mm. Pancreas: Overlying gas and soft tissue attenuation precludes visualization of thepancreas. FINAL REPORT Dictated: 05/13/2018 11:21 am Bertin Hernandez MD Signed (Electronic Signature): 05/13/2018 5:30 pm Signed by: Bertin Hernandez MD Transcribed by: pacheco Technologist: OUMAR [facility] Encounters Encounter Date Encounter Type Care Provider Facility Start: 04-07-2022 End: 04-08-2022 ambulatory [facility] Facility:[facility] Start: 02-24-2022 End: 02-[facility]20[facility] Start: 02-03-2022 End: 02-04-2022 ambulatory [facility] Facility:[facility] Start: 01-13-2022 End: 01-14-2022 ambulatory [facility] Facility:[facility] Start: 01-09-2022 End: 01-09-[address] KAVITA JAMES Facility:H1 Start: 05-23-2018 End: 05-23-2018 Patient encounter procedure Josh Lowry Facility:[facility] Start: 05-18-2018 End: 05-19-2018 Patient encounter procedure Josh Lowry Facility:[facility] Start: 05-13-2018 End: 05-14-2018 Patient encounter procedure Josh Lowry Facility:[facility] Procedures Date Procedure Procedure Detail Performing Clinician Start: 05-26-2018 Anesthesia consultation Josh Lowry Start: 05-23-2018 Anesthesia consultation Josh Lowry Payers Date Payer Category Payer Unknown [id number] 1965 Unknown [id number] 2.16.84 [id number] 1965 Unknown [id number] 2.16.84 [id number] 1965 Unknown [id number] 2.16.84 [id number] 1965 Unknown [id number] 2.16.84 [id number] 1965 Unknown [id number] 2.16.84 [id number] 1965 Unknown [id number] 2.16.84 [id number] 1965 Unknown [id number] 2.16.84 [id number] 1965 Unknown [id number] 2.16.84 [id number] 1959 Unknown [id number] Clinical Note 04-07-2022 Note Date & Type Note Facility 04-07-2022 Note PROCEDURE: XR FOOT L T MIN 3 VIEWS HISTORY: Pain in left foot ; follow-up left fifth metatarsal fracture COMPARISON: XR foot left 02/24/2022 FINDINGS: BONES:Increasing density of prior fracture line at base of fifth metatarsal compatible with osseous healing. No change in alignment. SOFT TISSUES:No visible soft tissue swelling. EFFUSION:None visible. OTHER: Negative. IMPRESSION: 1. Continuing bone healing of proximal fifth metatarsal fracture. No abnormal alignment. Electronically authenticated by: BRAEDEN MISHRA Date: 2022-04-07 15:12 [facility] Clinical Note 02-24-2022 Note Date & Type Note Facility 02-24-2022 Note PROCEDURE: XR FOOT L T MIN 3 VIEWS HISTORY: Pain ; fifth metatarsal fracture 2 weeks ago COMPARISON: XR foot left 02/03/2022 FINDINGS: BONES:Increasing density of the base of fifth metatarsal fracture line; no displacement or change in alignment. SOFT TISSUES:No visible soft tissue swelling. EFFUSION:None visible. OTHER: Negative. IMPRESSION: 1. Ongoing bone healing of fifth metatarsal fracture. Stable alignment. Electronically authenticated by: BRAEDEN MISHRA Date: 2022-02-24 12:05 [facility] Clinical Note 02-03-2022 Note Date & Type Note Facility 02-03-2022 Note PROCEDURE: XR FOOT L T MIN 3 VIEWS HISTORY: Pain in left foot ; follow-up left fifth metatarsal fracture COMPARISON: None. FINDINGS: BONES:Minimally displaced fracture at base of fifth metatarsal without appreciable callus formation or significant increased density of the fracture line. SOFT TISSUES:No visible soft tissue swelling. EFFUSION:None visible. OTHER: Negative. IMPRESSION: 1. Stable base of fifth metatarsal fracture with slightly widened fracture line; unchanged. No radiographic evidence of significant bone healing. Electronically authenticated by: BRAEDEN MISHRA Date: 2022-02-03 11:29 [facility] Clinical Note 01-13-2022 Note Date & Type Note Facility 01-13-2022 Note PROCEDURE: XR FOOT L T MIN 3 VIEWS, XR ANKLE LT MIN 3 V COMPARISON: 01/09/2022 HISTORY: Pain in left foot FINDINGS: BONES:Stable transverse intra-articular fracture base of the fifth metatarsal with distraction up to 3.6 mm. Irregular appearance of the inferior lateral malleolus suggesting subtle avulsion fracture. No new fracture or dislocation. Moderate enthesopathic spurring of the calcaneus. SOFT TISSUES:Moderate lateral and ankle soft tissue swelling EFFUSION:None visible. OTHER: Negative. IMPRESSION: Stable transverse intra-articular fracture base of the fifth metatarsal Suspected tiny avulsion fracture inferior lateral malleolus Electronically authenticated by: ASTRID SAWYER Date: 2022-01-13 17:15 [facility] Clinical Note 01-13-2022 Note Date & Type Note Facility 01-13-2022 Note PROCEDURE: XR FOOT L T MIN 3 VIEWS, XR ANKLE LT MIN 3 V COMPARISON: 01/09/2022 HISTORY: Pain in left foot FINDINGS: BONES:Stable transverse intra-articular fracture base of the fifth metatarsal with distraction up to 3.6 mm. Irregular appearance of the inferior lateral malleolus suggesting subtle avulsion fracture. No new fracture or dislocation. Moderate enthesopathic spurring of the calcaneus. SOFT TISSUES:Moderate lateral and ankle soft tissue swelling EFFUSION:None visible. OTHER: Negative. IMPRESSION: Stable transverse intra-articular fracture base of the fifth metatarsal Suspected tiny avulsion fracture inferior lateral malleolus Electronically authenticated by: ASTRID SAWYER Date: 2022-01-13 17:15 [facility] Summary Purpose Family History No Family History Records FoundNo Family History Records Found Advance Directives No Advanced Directives Records FoundNo Advanced Directives Records Found Additional Source Comments INFORMATION SOURCE (unrecogn ized section and content) DATE CREATED AUTHOR 05/28/2018 [facility] DATE CREATED AUTHOR AUTHOR'S ORGANIZ ATION 04/11/[address] [facility] FOR RECORDS PERTAINING TO PATIENTS WHO ARE OR HAVE BEEN ENROLLED IN A CHEMICAL DEPENDENCY/SUBSTANCEABUSE PROGRAM, SOME INFORMATION MAY BE OMITTED. This clinical summary was aggregated from multiple sources. Caution should be exercised in using it in the provision of clinical care. This summary normalizes information from multiple sources, and as a consequence, information in this document may materially change the coding, format and clinical context of patient data. In addition, data may be omitted in some cases. CLINICAL DECISIONS SHOULD BE BASED ON THE PRIMARY CLINICAL RECORDS. [facility]. provides no warranty or guarantee of the accuracy or completeness of information in this document.
--- NOTE | 2024-01-25 07:59 | CT_ITS ---
[address] [address] Patient Name: LATHA DUMONT MRN: [id number] date: 1965 Sex: F Assigned Patient Location: CT Current Patient Location: CT Accession/Order Number: [id number] Exam Date: 01/25/2024 07:52 Report Date: 01/25/2024 10:06 At the request of: KAVITA JAMES Procedure: CT chest wo con EXAMINATION: CT chest wo con HISTORY: Scar Tissue L90.5 ; follow-up lung nodules; right rib pain since falling one week ago COMPARISON: XR RIBS 01/17/2024, XR chest 01/17/2024, CT chest 07/01/2019 TECHNIQUE: Axial, Coronal, and Sagittal images were created without the administration of IV contrast material. Dose reduction techniques were achieved by using automated exposure control and/or adjustment of mA and/or kV according to patient size and/or use of iterative reconstruction technique. FINDINGS: LUNGS: 9 mm nodule within posterior segment of right upper lobe with several adjacent 2-3 mm nodules. PLEURA: No mass, effusion, or pneumothorax. VASCULATURE: No abnormality. RAMSES: No mass or pathologic adenopathy. MEDIASTINUM: No mass or pathologic adenopathy. CARDIAC: No enlargement, pericardial thickening, or pericardial effusion. Coronary Artery calcifications: AORTA: No aneurysm or dissection. CHEST WALL: No mass or axillary adenopathy BONES: Small sclerotic focus within anterior right 5th rib. No fractures. LIMITED ABDOMEN: No suspicious findings. Limited images of the upper abdomen. OTHER: Negative. CT/CT chest wo con IMPRESSION: 1. New 9 mm nodule with several tiny satellite lesions within right upper lobe posterior segment; nonspecific. Follow-up CT chest in 1-2 months could be performed to document clearing of potential infiltrate. Otherwise consider PET imaging for additional evaluation. 2. Small sclerotic focus within anterior right 5th rib; nonspecific but favoring a benign bone island. 3. No rib fracture(s). Electronically authenticated by: BRAEDEN MISHRA Date: 01/25/2024 10:06
== END 2024-01-25 07:45 | disposition home or self-care (01) ==
LOC: CT 07:44
PROVIDERS: PCP Family Medicine; Visit Provider Family Medicine
DX: L90.5 Scar conditions and fibrosis of skin (principal); R91.8 Other nonspecific abnormal finding of lung field
CPT/HCPCS: 71250

== ENCOUNTER 2024-02-14 14:49 | Outpatient (OUT) | payer BC, SELFPAY ==
--- NOTE | 2024-02-14 16:43 | PE_ITS ---
The [address] [address] Patient Name: LATHA DUMONT MRN: [id number] date: 1965 Sex: F Assigned Patient Location: PETCT Current Patient Location: PETCT Accession/Order Number: [id number] Exam Date: 02/14/2024 15:42 Report Date: 02/15/2024 22:37 At the request of: KAVITA JAMES Procedure: PET skull to mid thigh PET/CT: HISTORY: Pulmonary nodule. COMPARISON: CT chest 01/25/2024, 05/24/2019, CT abdomen and pelvis 05/06/2018.. TECHNIQUE: The patient was injected with 13.01 mCi of F-18 fluorodeoxyglucose (FDG), and an emission scan was performed from the base of the skull to the mid thigh. Noncontrast CT was performed for attenuation correction and anatomic localization. The blood glucose level was 99 mg/dl. The uptake time was 51 minutes. FINDINGS: HEAD AND NECK: There is a physiologic distribution of activity, with no hypermetabolic foci. CHEST: The SUV max of the mediastinum = 3.6 using the patient's body weight as the normalization method. The previously noted 9 mm right upper lobe pulmonary nodule shows only minimal FDG uptake on image 88 with SUV max 2.2. Satellite lesions noted previously are below resolution limits of PET. There is no hypermetabolic mediastinal or hilar adenopathy. ABDOMEN AND PELVIS: There is a physiologic distribution of activity within the liver, spleen, adrenal glands, urinary tract and bowel, with no hypermetabolic foci. MUSCULOSKELETAL SYSTEM: There is moderate activity at the left anterior L4-L5 disc space consistent with degenerative changes. There is also mild activity within the right seventh anterior rib corresponding to a remote fracture on CT. ADDITIONAL CT FINDINGS: The patient is status post cholecystectomy. 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 This appears stable. There is moderate diffuse fatty replacement of the pancreas. There is a small left adrenal adenoma. There is a small nonobstructing left lower pole renal stone. There is a small hiatal hernia. PET/PET skull to mid thigh IMPRESSION: 1. The 9 mm right upper lobe pulmonary nodule seen on the CT from 01/25/2024 shows only minimal FDG uptake, favoring a benign etiology however a follow-up chest CT is recommended in 3 months to ensure stability. 2. Additional CT findings as described above. Electronically authenticated by: BRAEDEN ARCHIBALD Date: 02/15/2024 22:37
== END 2024-02-14 14:50 | disposition home or self-care (01) ==
LOC: PETCT 14:50
PROVIDERS: PCP Family Medicine; Visit Provider Family Medicine
DX: R91.1 Solitary pulmonary nodule (principal)
CPT/HCPCS: 78815; A9552

== ENCOUNTER 2024-04-13 08:38 | Outpatient (OUT) | payer BC, SELFPAY ==
--- NOTE | 2024-04-13 08:46 | MM_ITS ---
Patient Name: LATHA DUMONT MR#: [id number] : 1965 Exam Date: 04/13/2024 Ordering Doctor: DR KAVITA JAMES . RADIOLOGY REPORT PROCEDURE: MM TOMOSYNTHESIS SCREENING BI COMPARISON: MM TOMOSYNTHESIS SCREENING BI, 02/17/2023. MG MAMM SCREEN JODIE W CAD, 09/25/2016. INDICATIONS: Screening Calculator Name NCI Breast Cancer Risk Assessment Tool 5 Year Breast Cancer Risk 1.80% Lifetime Breast Cancer Risk 10.00% Personal Breast Cancer No Personal Ovarian Cancer No Treatments None Family Cancers Brother with kidney cancer at age 49. LOCATION: [facility] BREAST COMPOSITION: The breasts are heterogeneously dense,which may obscure small masses. FINDINGS: DIAGNOSTIC CATEGORY 1--NEGATIVE. RIGHT BREAST: No significant suspicious finding. No significant change has occurred. LEFT BREAST: No significant suspicious finding. No significant change has occurred. RECOMMENDATIONS: ROUTINE MAMMOGRAM AND CLINICAL EVALUATION IN 12 MONTHS. PLEASE NOTE: A NORMAL MAMMOGRAM DOES NOT EXCLUDE THE POSSIBILITY OF BREAST CANCER. A CLINICALLY SUSPICIOUS PALPABLE LUMP SHOULD BE BIOPSIED. Dictated by: Robb Mackey M.D. on 04/13/2024 at 15:37 Approved by: Robb Mackey M.D. on 04/13/2024 at 15:38
== END 2024-04-13 08:39 | disposition home or self-care (01) ==
PROVIDERS: PCP Family Medicine; Visit Provider Family Medicine
DX: Z12.31 Encounter for screening mammogram for malignant neoplasm of breast (principal); Z80.51 Family history of malignant neoplasm of kidney
CPT/HCPCS: 77063; 77067

== ENCOUNTER 2024-05-02 07:56 | Outpatient (OUT) | payer BC, SELFPAY ==
--- NOTE | 2024-05-02 07:58 | CT_ITS ---
[address] [address] Patient Name: LATHA DUMONT MRN: [id number] date: 1965 Sex: F Assigned Patient Location: CT Current Patient Location: Accession/Order Number: [id number] Exam Date: 05/02/2024 08:10 Report Date: 05/03/2024 05:09 At the request of: KAVITA JAMES Procedure: CT angio chest EXAMINATION: CT angio chest HISTORY: Aorta Aneurysm, Solitary Pulmonary Nodule COMPARISON: CT chest without contrast 01/25/2024 TECHNIQUE: Multi-planar CT images were created with IV contrast. Axial, Coronal, and Sagittal images. Dose reduction techniques were achieved by using automated exposure control and/or adjustment of mA and/or kV according to patient size and/or use of iterative reconstruction technique. 3-D reconstruction was performed on a separate workstation. FINDINGS: VASCULATURE: Stable 9 mm nodule with adjacent satellite lesions within posterior segment of right upper lobe. Mild groundglass opacity throughout majority of the lungs on today's study likely due to atelectasis and underexpansion. No new nodules. LUNGS: No visible pulmonary disease. PLEURA: No mass, effusion, or pneumothorax. RAMSES: No mass or adenopathy. MEDIASTINUM: No mass or adenopathy. CARDIAC: Cardiomegaly. No pericardial effusion, pericardial thickening, or appreciable aneurysm. AORTA: No aneurysm or dissection. CHEST WALL: No mass or axillary adenopathy. BONES: No bone lesion or fracture. LIMITED ABDOMEN: No suspicious findings. Limited images of the upper abdomen. OTHER: Negative. CT/CT angio chest IMPRESSION: 1. Stable 9 mm nodule with adjacent tiny satellite lesions within right upper lobe posterior segment. This showed low radiotracer uptake on recent PET study. Consider follow-up CT chest without contrast in 6 months and 12 months to document continued stability. 2. No aortic aneurysm. Electronically authenticated by: BRAEDEN MISHRA Date: 05/03/2024 05:09
== END 2024-05-02 07:57 | disposition home or self-care (01) ==
LOC: CT 07:56
PROVIDERS: PCP Family Medicine; Visit Provider Family Medicine
DX: I71.9 Aortic aneurysm of unspecified site, without rupture (principal); R91.8 Other nonspecific abnormal finding of lung field
CPT/HCPCS: 71275; Q9967